=== PATIENT | female | born 2000 | race Caucasian/White ===

== ENCOUNTER 2022-09-29 23:15 | Emergency (ER) | payer OTHER ==
[2022-09-30] MEDS ORDERED: Albuterol/Ipratropium 3.0-0.5 MG/3 ML Neb Soln NEB ONE (00:58)
[2022-09-30] MEDS ORDERED: Dexamethasone 10 MG/ML SDV PO ONE (02:44)
== END 2022-09-30 02:56 | disposition home or self-care (01) ==
LOC: MW.ED 23:15
DX: J45.901 Unspecified asthma with (acute) exacerbation (principal)
CPT/HCPCS: 71046; 87635; 94640; 99285; J8540; 99283; J7620-GY; U0002